=== PATIENT | female | born 1995 | race Hispanic/Latino ===

== ENCOUNTER 2017-05-24 17:55 | Emergency (ER) | payer OTHER, MEDICAID ==
[2017-05-24 18:02] VITALS: BP 118/72; PULSE 68; RESP 18; TEMP 98.4; O2SAT 100
--- NOTE | 2017-05-24 19:00 | ED PDOC ---
HPI: General Adult Time Seen by Provider: 05/24/17 18:22 Chief Complaint (Nursing): Headache History Per: Patient Additional Complaint(s): Pt. states for the past 5 days she's had atraumatic headache and lightheadedness. Reports today while at work she noticed swelling to the forehead prompting ED visit. Pt. states that 3 years ago she had Chiarri decompression done in [facility]. Pt. states 2 months ago she had a head injury and had a CT head done which was negative. Denies fever, new trauma, visual changes, light sensitivity, N/V, chest pain, SOB, rash. Past Medical History Reviewed: Historical Data, Nursing Documentation, Vital Signs Vital Signs: Last Vital Signs Temp 98.4 F 05/24/17 17:58 Pulse 68 05/24/17 17:58 Resp 18 05/24/17 17:58 BP 118/72 05/24/17 17:58 Pulse Ox 100 05/24/17 20:03 - Family History Family History: States: No Known Family Hx - Allergies Allergies/Adverse Reactions: Allergies Allergy/AdvReac Type Severity Reaction Status Date / Time No Known Allergies Allergy Verified 05/24/17 17:58 Review of Systems ROS Statement: Except As Marked, All Systems Reviewed And Found Negative Neurological: Positive for: Headache Physical Exam - Reviewed Nursing Documentation Reviewed: Yes Vital Signs Reviewed: Yes - Physical Exam Appears: Positive for: Well, Non-toxic, No Acute Distress Head Exam: Positive for: ATRAUMATIC, NORMOCEPHALIC. Negative for: NORMAL INSPECTION (mild swelling to forehead without ecchymosis or erythema) Skin: Positive for: Normal Color, Warm, DRY Eye Exam: Positive for: EOMI, Normal appearance, PERRL ENT: Positive for: Normal ENT Inspection Neck: Positive for: Normal, Painless ROM Cardiovascular/Chest: Positive for: Regular Rate, Rhythm Respiratory: Positive for: CNT, Normal Breath Sounds Gastrointestinal/Abdominal: Positive for: Normal Exam, Bowel Sounds, Soft. Negative for: Tenderness Back: Positive for: Normal Inspection Extremity: Positive for: Normal ROM, Other (L well driller strenght is weaker than R; ) Neurologic/Psych: Positive for: Alert, Oriented - ECG O2 Sat by Pulse Oximetry: 100 Disposition - Clinical Impression Clinical Impression: Headache - Patient ED Disposition Is Patient to be Admitted: Transfer of Care (Signed out to You IRWIN pending CT results and final disposition.) - Disposition Disposition Time: 20:03 Condition: STABLE
[2017-05-24 19:52] LABS: RBC URINE < 1 /hpf (0-3); URINE BILIRUBIN NEGATIVE (NEGATIVE); URINE BLOOD NEGATIVE (NEGATIVE); URINE COLOR STRAW (YELLOW); URINE GLUCOSE (UA) NEG (Normal); URINE KETONE NEGATIVE (NEGATIVE); URINE LEUKOCYTE ESTERASE NEG Leu/uL (Negative); URINE PROTEIN NEGATIVE (NEGATIVE); URINE UROBILINOGEN 0.2-1.0 mg/dL (0.2-1.0); WBC URINE < 1 /hpf (0-5)
[2017-05-24 20:02] LABS: BASO # 0.1 K/uL (0.0-0.2); BASO % 0.7 % (0.0-2.0); EOS # 0.3 K/uL (0.0-0.7); EOS % 4.9 % (0.0-4.0); HEMATOCRIT 36.2 % (34.0-47.0); LYMPH # 2.9 K/uL (1.0-4.3); MEAN CELL VOLUME 91.8 fl (81.0-99.0); MEAN CORPUSCULAR HEMOGLOBIN 30.9 pg (27.0-31.0); MEAN CORPUSCULAR HGB CONC 33.6 g/dL (33.0-37.0); MEAN PLATELET VOLUME 8.8 fl (7.2-11.7); MONO # 0.5 K/uL (0.0-0.8); MONO % 6.9 % (0.0-10.0); NEUT # 3.2 K/uL (1.8-7.0); NEUT % 46.5 % (50.0-75.0); RED CELL DISTRIBUTION WIDTH 13.2 % (11.5-14.5)
[2017-05-24 20:21] LABS: ALB/GLOB RATIO 1.4 (1.0-2.1); ALKALINE PHOSPHATASE 52 U/L (38-126); ALT/SGPT 33 U/L (9-52); AST/SGOT 26 U/L (14-36); BILIRUBIN,TOTAL 0.5 mg/dl (0.2-1.3); BLOOD UREA NITROGEN 8 mg/dl (7-17); CALCIUM 9.2 mg/dL (8.4-10.2); CARBON DIOXIDE 23 mmol/L (22-30); CHLORIDE 107 mmol/L (98-107); GFR AFRICAN-AMERICAN > 60; GLUCOSE,RANDOM 88 mg/dL (65-105); PARTIAL THROMBOPLASTIN TIME 26.2 Seconds (25.6-37.1); POTASSIUM 3.8 MMOL/L (3.6-5.0); SODIUM 139 mmol/l (132-148); TOTAL PROTEIN 7.4 G/DL (6.3-8.2)
--- NOTE | 2017-05-24 20:38 | ED PDOC ---
- Laboratory Results Result Diagrams: 05/24/17 19:54 05/24/17 19:54 - ECG O2 Sat by Pulse Oximetry: 100 Medical Decision Making Medical Decision Making: Case endorsed to typewriter mechanic from [facility] at 20:00 pending diagnostic review and re-eval HPI: General Adult Time Seen by Provider: 05/24/17 18:22 Chief Complaint (Nursing): Headache History Per: Patient Additional Complaint(s): Pt. states for the past 5 days she's had atraumatic headache and lightheadedness. Reports today while at work she noticed swelling to the forehead prompting ED visit. Pt. states that 3 years ago she had Chiarri decompression done in [facility]. Pt. states 2 months ago she had a head injury and had a CT head done which was negative. Denies fever, new trauma, visual changes, light sensitivity, N/V, chest pain, SOB, rash. Labs resulted and reviewed with Pt who demonstrated full understanding. MRI and CT scans resulted, both showing Prior Chiari malformation repairs, no acute intracranial abnormality identified Dr. Caldera, Neurosurgeon- [facility] Contacted and case discussed Advised stable for discharge at this time, follow up in office later this week. tapering Steroid dosage requested Disposition - Clinical Impression Clinical Impression: Headache - POA Present On Arrival: None - Disposition Disposition: Routine/Home Disposition Time: 22:36 Condition: STABLE Prescriptions: Prednisone [Bryan] 2 mg PO DAILY 11 Days Instructions: Acute Headache (DC) Forms: [facility] ED School/Work Excuse Print Language: LAO
--- NOTE | 2017-05-25 09:43 | CT ---
PROCEDURE: CT HEAD WITHOUT CONTRAST. HISTORY: headache COMPARISON: None available. TECHNIQUE: Axial computed tomography images were obtained through the head/brain without intravenous contrast. Radiation dose: Total exam DLP = 838.86. MGy-cm. This CT exam was performed using one or more of the following dose reduction techniques: Automated exposure control, adjustment of the mA and/or kV according to patient size, and/or use of iterative reconstruction technique. FINDINGS: HEMORRHAGE: No acute parenchymal, subarachnoid nor extra-axial BRAIN: Status post suboccipital craniectomy defect secondary to Chiari 1 malformation VENTRICLES: Unremarkable. No hydrocephalus. CALVARIUM: Unremarkable. PARANASAL SINUSES: Unremarkable as visualized. No significant inflammatory changes. MASTOID AIR CELLS: Unremarkable as visualized. No inflammatory changes. OTHER FINDINGS: None. IMPRESSION: Status post suboccipital craniectomy defect secondary Chiari 1 malformation
--- NOTE | 2017-05-25 12:19 | MRI ---
PROCEDURE: MRI BRAIN WITHOUT CONTRAST HISTORY: headache; hx of Chiari 1 decompression. COMPARISON: Comparison made with CT scan brain 05/24/2017 TECHNIQUE: Multiplanar, multisequence MR images of the brain were obtained without intravenous contrast enhancement. FINDINGS: HEMORRHAGE: No acute parenchymal, subarachnoid or extra-axial hemorrhage. No hemosiderin deposition identified on gradient echo weighted sequence DWI: No evidence of an acute or early subacute infarction seen on diffusion imaging. . BRAIN PARENCHYMA: Chiari 1 malformation for which a decompression suboccipital craniectomy has been performed. VENTRICLES: Unremarkable. No hydrocephalus. CRANIUM: Unremarkable. ORBITS: Grossly unremarkable. PARANASAL SINUSES/MASTOIDS: Clear VASCULAR SYSTEM: Major vascular flow voids at skull base are patent. Arzola OTHER FINDINGS: None. IMPRESSION: Chiari 1 malformation for which a decompression suboccipital craniectomy has been performed. .
== END 2017-05-24 22:33 | disposition home or self-care (01) ==
LOC: H.ER 17:55
DX: R51 Headache (principal)